=== PATIENT | male | born 1960 | race Caucasian/White ===

== ENCOUNTER 2024-09-06 11:35 | Observation (INO) ==
[~2024-09-06 11:35] MED LIST: HYDROmorphone 1 MG/1 ML SYRINGE IV PRN; Naloxone 0.4 mg VIAL 0.4 mg/ml 1 ml VIAL IV PRN; Ondansetron 4 mg VIAL 2 MG/ML 2 ml VIAL IV PRN
[2024-09-06] MEDS: Buffered Lidocaine 1% SYRIN 1 ml INTRADERM ONE (12:15)
[2024-09-06] MEDS ORDERED: Tranexamic Acid 1 GM/100ML BAG 2,000 MG/200 ML BAG IV ONE (12:16)
[2024-09-06] MEDS ORDERED: ceFAZolin 1 GM in Dextrose 1 GM/50 ML BAG ONE (12:17)
[2024-09-06] MEDS ORDERED: ceFAZolin 2 GM PREMIX 2 GM/50 ML BAG ONE (12:17)
[2024-09-06] MEDS: Scopolamine 1 mg/72hr PATCH TRANSDERM ONE (12:21)
[2024-09-06] MEDS: Lactated Ringers 1000 ml BAG 1,000 ML IV SCH ×2 (12:22→18:54)
[2024-09-06 12:40] LABS: Rapid COVID-19 Molecular Undetected (Undetected)
[2024-09-06] MEDS ORDERED: Dexamethasone IV 4 MG/ML VIAL 1 ml VIAL ONE (12:57)
[2024-09-06] MEDS ORDERED: Lidocaine 2% PF 5 ML VIAL ONE (12:57)
[2024-09-06] MEDS ORDERED: Ondansetron 4 mg VIAL 2 MG/ML 2 ml VIAL ONE (12:57)
[2024-09-06] MEDS ORDERED: Midazolam 2 mg/2 ml VIAL 1 mg/ml 2 ml VIAL (2 mg) ONE (12:58)
[2024-09-06] MEDS ORDERED: fentaNYL 250 mcg/5 ml 50 MCG/ML 5 ml VIAL (250 MCG) ONE (12:58)
[2024-09-06] MEDS ORDERED: ROPIVACAINE 5 MG/ML 30 ML BTL (0.5%) ONE ×2 (13:42→17:18)
[2024-09-06] MEDS ORDERED: KETAMINE HCL 10 MG/ML 20 ml VIAL (200 MG) ONE (15:05)
[2024-09-06] MEDS ORDERED: Morphine 2 MG/ML SYRINGE IV PRN (15:56)
[2024-09-06] MEDS ORDERED: Ondansetron ODT 4 mg TAB 4 MG TAB PO PRN (15:56)
[2024-09-06] MEDS ORDERED: Calcium Carb (TUMS) 500 mg CHEW TAB PO PRN (15:56)
[2024-09-06] MEDS ORDERED: Lactulose 30 ml UDC PO PRN (15:56)
[2024-09-06] MEDS ORDERED: Magnesium Hydroxide LIQ 30 ML UDC PO PRN (15:56)
[2024-09-06] MEDS ORDERED: Ondansetron 4 mg VIAL 2 MG/ML 2 ml VIAL IV PRN (15:56)
[2024-09-06] MEDS ORDERED: HYDROmorphone 0.5 MG/0.5 ML SYRINGE ONE (16:42)
[2024-09-06] MEDS ORDERED: fentaNYL 100 mcg/2 ml 50 MCG/ML VIAL ONE ×2 (16:43→17:53)
[2024-09-06] MEDS: fentaNYL 100 mcg/2 ml 50 MCG/ML VIAL IV PRN (17:59)
[2024-09-06] MEDS: ceFAZolin 2 GM PREMIX 2 GM/50 ML BAG IV SCH (22:08)
[2024-09-06] MEDS: Magnesium Hydroxide LIQ 30 ML UDC PO SCH (22:24)
[2024-09-07] MEDS: Acetaminophen IV 1 GM/100ML 1,000 MG/100 ML BAG IV ONE (00:58)
[2024-09-07 06:50] LABS: Calcium 8.8 mg/dL (8.6-10.3); Potassium 4.4 mmol/L (3.5-5.0); eGFR CKD-EPI 85.1 (>60)
[2024-09-07 07:05] LABS: Hematocrit 35.6 % (38-53); Hemoglobin 12.1 g/dL (13.2-16.3); Mean Platelet Volume 8.4 fL (7.5-11.2); Platelet Count 195 10^3/uL (150-450)
[2024-09-07] MEDS: Vitamin THERAPEUTIC TAB PO SCH (08:21)
== END 2024-09-07 14:40 | disposition home or self-care (01) ==
LOC: OR 11:35 → SSU 11:35
PROVIDERS: ADMIT Orthopaedic Surgery Adult Reconstructive Orthopaedic Surgery; ATTEND Orthopaedic Surgery Adult Reconstructive Orthopaedic Surgery